=== PATIENT | male | born 1950 | race Caucasian/White ===

== ENCOUNTER 2016-07-05 20:55 | Emergency (ER) | payer BC ==
--- NOTE | 2016-07-05 21:18 | ED ORDER SUMMARY ---
..... Patient: LU SHI OrderSheet [facility] VisitID: [id number] [address] [place] [address] 65y, M Registration Date/Time: 07/05/2016 ORDER SHEET Weight: 79.3 kg Allergies: Sulfa Antibiotics GENERAL ORDERS: MEDICATION ORDERS: Amoxicillin PO 500 mg (NOW) (21:15 07/05/2016 Charlene Larson) (21:25 Dennis Ackerman) IV FLUIDS: ORDER SHEET NOTES: [Electronically signed by Sarah Lewis R.N. (21:26 07/05/2016)] [Electronically signed by Aaliyah Dobbs P.A.-C (21:45 07/05/2016)] [Electronically locked/signed by Sarah Lewis R.N. (21:26 07/05/2016)]
--- NOTE | 2016-07-05 21:18 | ED NURSING NOTES ---
Clinical Report - Nurses [facility] [address] [place] [address] 07/05/2016 20:59 Patient: LU SHI TRIAGE Triage time 21:04 Jul 05 2016. Acuity: LEVEL 4. Chief Complaint: LEFT LOWER TOOTHACHE and (pressure on left side of face). --21:10 Sarah Lewis R.N. 21:04 07/05/16. BP: 159/82. HR: 77. RR: 18. O2 saturation: 96%. Temp: 97.9 F. Pain level now 12/02. --21:10 Sarah Lewis R.N. Weight: 79.3 kg. Height/Length: 68 inches. BMI: 26.6. --21:04 Sarah Lewis R.N. Medications Suboxone Sublingual. --21:07 Sarah Lewis R.N. Albuterol Sulfate HFA Inhalation. --21:07 Sarah Lewis R.N. Allergies Sulfa Antibiotics. --21:08 Sarah Lewis R.N. Medication/allergy information source: the patient. --21:10 Sarah Lewis R.N. History Arrived by private vehicle. Historian: patient. Accompanied by family. Onset. (5 days ago). ( Called Dentist, has appt scheduled for next friday. Pain worse today and wont stop). He has a dental appointment scheduled. He has had facial pain. No fever, hoarseness, mouth sores, ear pain or sinus pain. He has had a toothache. 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 SOCIAL HX: Never smoker. No alcohol use or drug use. ABUSE ASSESSMENT: No report of abuse. SELF HARM ASSESSMENT: A self harm assessment was performed. The patient answered "no" to the question "Have you recently felt down, depressed, or hopeless?", "Have you noticed less interest or pleasure in doing things?", "Do you have thoughts of harming or killing yourself?", "Are you here because you tried to hurt yourself?", "Have you ever tried to hurt yourself before today?", "Have you recently had thoughts about harming or killing others?" and "Do you have any dangerous items in your possession?". NUTRITIONAL RISK ASSESSMENT: The nutritional risk assessment revealed no deficiencies. FUNCTIONAL ASSESSMENT: Functional assessment: no impairments noted. LEARNING NEEDS ASSESSMENT: The learning needs assessment revealed no barriers. SKIN INTEGRITY ASSESSMENT: Skin integrity risk assessment completed. No skin integrity risk identified. --21:10 Sarah Lewis R.N. PROBLEMS: Bronchitis. --21: Sarah Lewis R.N. ADDITIONAL SURGERIES: Knee Replacement. --21: Sarah Lewis R.N. Interventions ID band on patient. --21: Sarah Lewis R.N. PHYSICAL ASSESSMENT 21:07/05/16. GENERAL / NEURO / PSYCH: Alert. Oriented X 4. HEENT: Pupils equal, round and reactive to light. Pharynx within normal limits. Voice within normal limits. Mouth within normal limits upon inspection. No dental injury noted. Mucous membranes are pink. RESPIRATORY: Respirations not labored. SKIN: Skin is warm and dry. Normal skin turgor. --21:12 Sarah Lewis R.N. NURSING PROGRESS NOTES 21:07/05/16. Call light placed in reach. Patient ready for evaluation. --21:12 Sarah Lewis R.N. 21:24 07/05/2016 Amoxicillin PO Capsules 500 mg given. Allergies verified and confirmed 5 rights. --21:25 Sarah Lewis R.N. DISPOSITION / DISCHARGE 21:25 07/05/16. Departure time: :Jul 05 2016. Condition at departure: improved and stable. The goals identified in the patient's plan of care were met. No learning barriers present. Reviewed medication(s) side effects, precautions, dosing and course information. Prescription(s) given to the patient. Reviewed referral to a dentist for followup. Summary of care provided to patient via paper. Patient verbalized understanding. Written instructions provided in Yoruba. The patient was discharged home and accompanied by spouse. He left the Emergency Department ambulatory and via private vehicle. Spouse driving. --21:26 Sarah Lewis R.N. 21:04 07/05/16. BP: 159/82. HR: 77. RR: 18. O2 saturation: 96%. Temp: 97.9 F. Pain level now 12/02. --21:26 Sarah Lewis R.N. Locked/Released at 07/05/2016 21:26 by Sarah Lewis R.N.
--- NOTE | 2016-07-05 21:18 | ED CLINICAL REPORT ---
Clinical Report - Physicians/Mid Levels [facility] [address] [place] [address] 07/05/2016 20:59 Patient: LU SHI Time Seen: 21:40 Jul 05 2016. Arrived- By private vehicle. Historian- patient. HISTORY OF PRESENT ILLNESS Chief Complaint: DENTAL PAIN. 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 Pain described as moderate. The patient has had toothache. No jaw pain. (Patient reports 5 days of dental pain. Patient reports his crown was placed about 30-40 years previously. Reports no prior problems to the crown. Reports taking mxwg-zca-utlbbld medications Reports worse with hot or cold. Denies any facial swelling. Denies any cough, nausea or vomiting. Denies difficulty swallowing.). REVIEW OF SYSTEMS No fever, cough, difficulty breathing, nausea or diarrhea. No headache or vomiting. All systems otherwise negative, except as recorded above. SOCIAL HISTORY Never smoker. No alcohol use or drug use. ADDITIONAL NOTES The nursing notes have been reviewed. PHYSICAL EXAM Vital Signs: 07/05/2016 21:04 BP: 159/82. HR: 77. RR: 18. O2 saturation: 96%. Temp: 97.9 F. Appearance: Alert. No acute distress. ENT: Mild dental tenderness (Left premolar). Uvula midline. No peritonsillar mass, muffled or hoarse voice or dental decay. (no facial swelling.). Neck: Trachea midline. No adenopathy. No thyromegaly. CVS: Normal heart rate and rhythm. Heart sounds normal. Respiratory: No respiratory distress. Breath sounds normal. PROGRESS AND PROCEDURES Course of Care: patient with airway intact uvula midline, no difficulty swallowing. Patient with no signs of Jordan's angina. Patient with no palpable mass for incision and drainage. Stable. Follow-up with dentist next week. . Patient is stable. Physical exam findings are improved. Symptoms better. Patient/family counseled. Disposition: Discharged. CLINICAL IMPRESSION Moderate dental pain. INSTRUCTIONS Drink plenty of fluids. Warnings: Further evaluation is necessary. Prescription Medications: Amoxicillin 500 mg tablets: Take 1 orally every 8 hours for 10 days. Dispense thirty (30). No refills. Follow-up: Follow up with a specialist Friday. (Electronically signed by Aaliyah Dobbs P.A.-C 07/05/2016 21:45)
--- NOTE | 2016-07-05 21:18 | ED NURSING NOTES ---
Clinical Report - Nurses [facility] [address] [place] [address] 07/05/2016 20:59 Patient: LU SHI TRIAGE Triage time 21:04 Jul 05 2016. Acuity: LEVEL 4. Chief Complaint: LEFT LOWER TOOTHACHE and (pressure on left side of face). --21:10 Sarah Lewis R.N. 21:04 07/05/16. BP: 159/82. HR: 77. RR: 18. O2 saturation: 96%. Temp: 97.9 F. Pain level now 12/02. --21:10 Sarah Lewis R.N. Weight: 79.3 kg. Height/Length: 68 inches. BMI: 26.6. --21:04 Sarah Lewis R.N. Medications Suboxone Sublingual. --21:07 Sarah Lewis R.N. Albuterol Sulfate HFA Inhalation. --21:07 Sarah Lewis R.N. Allergies Sulfa Antibiotics. --21:08 Sarah Lewis R.N. Medication/allergy information source: the patient. --21:10 Sarah Lewis R.N. History Arrived by private vehicle. Historian: patient. Accompanied by family. Onset. (5 days ago). ( Called Dentist, has appt scheduled for next friday. Pain worse today and wont stop). He has a dental appointment scheduled. He has had facial pain. No fever, hoarseness, mouth sores, ear pain or sinus pain. He has had a toothache. 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 SOCIAL HX: Never smoker. No alcohol use or drug use. ABUSE ASSESSMENT: No report of abuse. SELF HARM ASSESSMENT: A self harm assessment was performed. The patient answered "no" to the question "Have you recently felt down, depressed, or hopeless?", "Have you noticed less interest or pleasure in doing things?", "Do you have thoughts of harming or killing yourself?", "Are you here because you tried to hurt yourself?", "Have you ever tried to hurt yourself before today?", "Have you recently had thoughts about harming or killing others?" and "Do you have any dangerous items in your possession?". NUTRITIONAL RISK ASSESSMENT: The nutritional risk assessment revealed no deficiencies. FUNCTIONAL ASSESSMENT: Functional assessment: no impairments noted. LEARNING NEEDS ASSESSMENT: The learning needs assessment revealed no barriers. SKIN INTEGRITY ASSESSMENT: Skin integrity risk assessment completed. No skin integrity risk identified. --21:10 Sarah Lewis R.N. PROBLEMS: Bronchitis. --21: Sarah Lewis R.N. ADDITIONAL SURGERIES: Knee Replacement. --21: Sarah Lewis R.N. Interventions ID band on patient. --21: Sarah Lewis R.N. PHYSICAL ASSESSMENT 21:07/05/16. GENERAL / NEURO / PSYCH: Alert. Oriented X 4. HEENT: Pupils equal, round and reactive to light. Pharynx within normal limits. Voice within normal limits. Mouth within normal limits upon inspection. No dental injury noted. Mucous membranes are pink. RESPIRATORY: Respirations not labored. SKIN: Skin is warm and dry. Normal skin turgor. --21:12 Sarah Lewis R.N. NURSING PROGRESS NOTES 21:07/05/16. Call light placed in reach. Patient ready for evaluation. --21:12 Sarah Lewis R.N. 21:24 07/05/2016 Amoxicillin PO Capsules 500 mg given. Allergies verified and confirmed 5 rights. --21:25 Sarah Lewis R.N. DISPOSITION / DISCHARGE 21:25 07/05/16. Departure time: :Jul 05 2016. Condition at departure: improved and stable. The goals identified in the patient's plan of care were met. No learning barriers present. Reviewed medication(s) side effects, precautions, dosing and course information. Prescription(s) given to the patient. Reviewed referral to a dentist for followup. Summary of care provided to patient via paper. Patient verbalized understanding. Written instructions provided in Kyrgyz. The patient was discharged home and accompanied by spouse. He left the Emergency Department ambulatory and via private vehicle. Spouse driving. --21:26 Sarah Lewis R.N. 21:04 07/05/16. BP: 159/82. HR: 77. RR: 18. O2 saturation: 96%. Temp: 97.9 F. Pain level now 12/02. --21:26 Sarah Lewis R.N. Locked/Released at 07/05/2016 21:26 by Sarah Lewis R.N.
--- NOTE | 2016-07-05 21:18 | ED ORDER SUMMARY ---
..... Patient: LU SHI OrderSheet [facility] VisitID: [id number] [address] [place] [address] 65y, M Registration Date/Time: 07/05/2016 ORDER SHEET Weight: 79.3 kg Allergies: Sulfa Antibiotics GENERAL ORDERS: MEDICATION ORDERS: Amoxicillin PO 500 mg (NOW) (21:15 07/05/2016 Charlene Larson) (21:25 Dennis Ackerman) IV FLUIDS: ORDER SHEET NOTES: [Electronically signed by Sarah Lewis R.N. (21:26 07/05/2016)] [Electronically signed by Aaliyah Dobbs P.A.-C (21:45 07/05/2016)] [Electronically locked/signed by Sarah Lewis R.N. (21:26 07/05/2016)]
--- NOTE | 2016-07-05 21:18 | ED CLINICAL REPORT ---
Clinical Report - Physicians/Mid Levels Located Within [facility] [address] [place] [address] 07/05/2016 20:59 Patient: LU SHI Time Seen: 21:40 Jul 05 2016. Arrived- By private vehicle. Historian- patient. HISTORY OF PRESENT ILLNESS Chief Complaint: DENTAL PAIN. 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 Pain described as moderate. The patient has had toothache. No jaw pain. (Patient reports 5 days of dental pain. Patient reports his crown was placed about 30-40 years previously. Reports no prior problems to the crown. Reports taking ydgs-omj-czoeetl medications Reports worse with hot or cold. Denies any facial swelling. Denies any cough, nausea or vomiting. Denies difficulty swallowing.). REVIEW OF SYSTEMS No fever, cough, difficulty breathing, nausea or diarrhea. No headache or vomiting. All systems otherwise negative, except as recorded above. SOCIAL HISTORY Never smoker. No alcohol use or drug use. ADDITIONAL NOTES The nursing notes have been reviewed. PHYSICAL EXAM Vital Signs: 07/05/2016 21:04 BP: 159/82. HR: 77. RR: 18. O2 saturation: 96%. Temp: 97.9 F. Appearance: Alert. No acute distress. ENT: Mild dental tenderness (Left premolar). Uvula midline. No peritonsillar mass, muffled or hoarse voice or dental decay. (no facial swelling.). Neck: Trachea midline. No adenopathy. No thyromegaly. CVS: Normal heart rate and rhythm. Heart sounds normal. Respiratory: No respiratory distress. Breath sounds normal. PROGRESS AND PROCEDURES Course of Care: patient with airway intact uvula midline, no difficulty swallowing. Patient with no signs of Jordan's angina. Patient with no palpable mass for incision and drainage. Stable. Follow-up with dentist next week. . Patient is stable. Physical exam findings are improved. Symptoms better. Patient/family counseled. Disposition: Discharged. CLINICAL IMPRESSION Moderate dental pain. INSTRUCTIONS Drink plenty of fluids. Warnings: Further evaluation is necessary. Prescription Medications: Amoxicillin 500 mg tablets: Take 1 orally every 8 hours for 10 days. Dispense thirty (30). No refills. Follow-up: Follow up with a specialist Friday. (Electronically signed by Aaliyah Dobbs P.A.-C 07/05/2016 21:45)
--- NOTE | 2016-07-05 21:45 | ED DISCHARGE INSTRUCTIONS ---
Patient: LU SHI General Instructions [facility] VisitID: [id number] [place] [address] 65y, M Registration Date/Time: 07/05/2016 Moderate dental pain. INSTRUCTIONS Drink plenty of fluids. Warnings: Further evaluation is necessary. Prescription Medications: Amoxicillin 500 mg tablets: Take 1 orally every 8 hours for 10 days. Dispense thirty (30). No refills. Follow-up: Follow up with a specialist Friday. ADDITIONAL INFORMATION Dental Pain A crack or cavity in the tooth, which exposes the sensitive inner area of the tooth can cause tooth pain. An infection in the gum or the root of the tooth can cause pain and swelling. The pain is often made worse by drinking hot or cold fluids, or biting on hard foods. Pain may spread from the tooth to the ear or jaw on the same side. Home Care: Avoid hot and cold foods and liquids since your tooth may be sensitive to temperature changes. If your tooth is chipped or cracked, or if there is a large open cavity, apply OIL OF CLOVES (available wexf-dfm-ujxjbhq in drug stores) directly to the tooth to reduce pain. Some pharmacies carry an vqaz-xsx-qheojly "toothache kit." This contains a paste, which can be applied over the exposed tooth to decrease sensitivity. A cold pack on your jaw over the sore area may help reduce pain. You may use acetaminophen (Tylenol) or ibuprofen (Motrin, Advil) to control pain, unless another medicine was prescribed. [ NOTE: If you have chronic liver or kidney disease or ever had a stomach ulcer or GI bleeding, talk with your doctor before using these medicines.] If you have signs of an infection, an antibiotic will be given. Take it as directed. Follow-Up as directed with a dentist. Your pain may go away with the treatment given. However, only a dentist can fully evaluate and treat the cause and prevent the pain from coming back again. TOOTHACHE IS A SIGN OF DISEASE IN YOUR TOOTH AND SHOULD BE EXAMINED AND TREATED BY A DENTIST. Get Prompt Medical Attention if any of the following occur: Your face becomes swollen or red Pain worsens or spreads to the neck Fever over 100.4 F (38.0 C) Unusual drowsiness; headache or stiff neck; weakness or fainting Pus drains from the tooth Difficulty swallowing or breathing You have been given the following additional information: Dental Pain (Electronically signed by Aaliyah Dobbs P.A.-C 07/05/2016 21:45)
--- NOTE | 2016-07-05 21:45 | ED MAR SUMMARY ---
..... Medication Administration Record [facility] [address] [place] [address] Patient: LU SHI Visit ID: [id number] 65y, M Weight: 79.3 kg Height/Length: 68 in BMI: 26.6 ALLERGIES: Sulfa Antibiotics Given 21:24 07/05/2016 Sarah Lewis R.N. Medication Administered: AMOXICILLIN [PO], Dose: 500 mg Capsules PO. Medication Ordered: Amoxicillin PO 500 mg (NOW).
--- NOTE | 2016-07-05 21:45 | ED MED RECONCILIATION SUMMARY ---
Patient: LU SHI Medication Reconciliation Report [facility] VisitID: [id number] [address] [place] [address] 65y, M Registration Date/Time: 07/05/2016 Weight: 79.3 kg Height/Length: 68 in. BMI: 26.6 ALLERGIES: Sulfa Antibiotics The patient's Home Medications are listed below: THE FOLLOWING MEDICATIONS NEED TO BE RECONCILED: Albuterol Sulfate HFA Inhalation Suboxone Sublingual The source(s) of the original Home Medication information: patient The following Medications were given to the patient in the Emergency Department: Amoxicillin [PO] PO 500 mg, administered: 07/05/2016 9:24:00 PM The following Medications were prescribed to the patient: Amoxicillin 500 mg tablets: Take 1 orally every 8 hours for 10 days. Dispense thirty (30). No refills. -- Aaliyah Dobbs, PEdyANickieC
--- NOTE | 2016-07-05 21:45 | ED MED RECONCILIATION SUMMARY ---
Patient: LU SHI Medication Reconciliation Report [facility] VisitID: [id number] [address] [place] [address] 65y, M Registration Date/Time: 07/05/2016 Weight: 79.3 kg Height/Length: 68 in. BMI: 26.6 ALLERGIES: Sulfa Antibiotics The patient's Home Medications are listed below: THE FOLLOWING MEDICATIONS NEED TO BE RECONCILED: Albuterol Sulfate HFA Inhalation Suboxone Sublingual The source(s) of the original Home Medication information: patient The following Medications were given to the patient in the Emergency Department: Amoxicillin [PO] PO 500 mg, administered: 07/05/2016 9:24:00 PM The following Medications were prescribed to the patient: Amoxicillin 500 mg tablets: Take 1 orally every 8 hours for 10 days. Dispense thirty (30). No refills. -- Aaliyah Dobbs, PdEyANickieC
--- NOTE | 2016-07-05 21:45 | ED MAR SUMMARY ---
..... Medication Administration Record [facility] [address] [place] [address] Patient: LU SHI Visit ID: [id number] 65y, M Weight: 79.3 kg Height/Length: 68 in BMI: 26.6 ALLERGIES: Sulfa Antibiotics Given 21:24 07/05/2016 Sarah Lewis R.N. Medication Administered: AMOXICILLIN [PO], Dose: 500 mg Capsules PO. Medication Ordered: Amoxicillin PO 500 mg (NOW).
--- NOTE | 2016-07-05 21:45 | ED DISCHARGE INSTRUCTIONS ---
Patient: LU SHI General Instructions [facility] VisitID: [id number] [place] [address] 65y, M Registration Date/Time: 07/05/2016 Moderate dental pain. INSTRUCTIONS Drink plenty of fluids. Warnings: Further evaluation is necessary. Prescription Medications: Amoxicillin 500 mg tablets: Take 1 orally every 8 hours for 10 days. Dispense thirty (30). No refills. Follow-up: Follow up with a specialist Friday. ADDITIONAL INFORMATION Dental Pain A crack or cavity in the tooth, which exposes the sensitive inner area of the tooth can cause tooth pain. An infection in the gum or the root of the tooth can cause pain and swelling. The pain is often made worse by drinking hot or cold fluids, or biting on hard foods. Pain may spread from the tooth to the ear or jaw on the same side. Home Care: Avoid hot and cold foods and liquids since your tooth may be sensitive to temperature changes. If your tooth is chipped or cracked, or if there is a large open cavity, apply OIL OF CLOVES (available mvpp-zyq-xmsvoqh in drug stores) directly to the tooth to reduce pain. Some pharmacies carry an jlvx-cqm-gdmjqde "toothache kit." This contains a paste, which can be applied over the exposed tooth to decrease sensitivity. A cold pack on your jaw over the sore area may help reduce pain. You may use acetaminophen (Tylenol) or ibuprofen (Motrin, Advil) to control pain, unless another medicine was prescribed. [ NOTE: If you have chronic liver or kidney disease or ever had a stomach ulcer or GI bleeding, talk with your doctor before using these medicines.] If you have signs of an infection, an antibiotic will be given. Take it as directed. Follow-Up as directed with a dentist. Your pain may go away with the treatment given. However, only a dentist can fully evaluate and treat the cause and prevent the pain from coming back again. TOOTHACHE IS A SIGN OF DISEASE IN YOUR TOOTH AND SHOULD BE EXAMINED AND TREATED BY A DENTIST. Get Prompt Medical Attention if any of the following occur: Your face becomes swollen or red Pain worsens or spreads to the neck Fever over 100.4 F (38.0 C) Unusual drowsiness; headache or stiff neck; weakness or fainting Pus drains from the tooth Difficulty swallowing or breathing You have been given the following additional information: Dental Pain (Electronically signed by Aaliyah Dobbs P.A.-C 07/05/2016 21:45)
== END 2016-07-05 21:25 | disposition home or self-care (01) ==
LOC: ED SRH 20:55
DX: K08.89 Other specified disorders of teeth and supporting structures (principal); Z88.2 Allergy status to sulfonamides